=== PATIENT | female | born 1980 | race Two or more races ===

== ENCOUNTER → 2022-07-27 | Outpatient (CLI) | payer OTHER ==
[2022-07-27 08:35] LABS: Basophils # (auto) 0 10 ^3/uL (0-0.2); Eosinophils # (auto) 0.3 10 ^3/uL (0-0.8); Eosinophils % (auto) 5.4 % (0.0-7.0); Hematocrit 44.5 % (36.0-46.0); Hemoglobin 15.6 g/dL (12.2-16.2); Lymphocytes # (auto) 2.4 10 ^3/uL (0.4-5.4); Lymphocytes % (auto) 46.8 % (10.0-50.0); Mean Corpuscular Hemoglobin 30.8 pg (28.0-32.0); Mean Corpuscular Hgb Conc. 35.1 g/dL (32.0-36.0); Mean Corpuscular Volume 87.7 fL (80.0-100.0); Monocytes # (auto) 0.4 10 ^3/uL (0-1.3); Monocytes % (auto) 8.6 % (0.0-12.0); Neutrophils # (auto) 1.9 10 ^3/uL (1.6-8.6); Neutrophils % (auto) 38.2 % (37.0-80.0); Nucleated Red Blood Cells % 0.1 %; Red Blood Cells 5.07 10^6/uL (4.0-5.20); Red Cell Distribution Width 13.6 % (11.8-14.3); White Blood Cell 5.1 10^3/uL (4.4-10.8)
[2022-07-27 09:41] LABS: Potassium 4.5 mmol/L (3.5-5.1)
[2022-07-27 09:54] LABS: Albumin 3.9 g/dL (3.4-5.0); BUN/Creatinine Ratio 10.7; Bilirubin, Total 0.5 mg/dL (0.2-1.0); Calcium 8.9 mg/dL (8.5-10.1); Total Protein 7.6 g/dL (6.4-8.2)
[2022-07-28 07:07] LABS: RPR Non Reactive (Non Reactive)
== END | disposition home or self-care (01) ==
LOC: LAB 08:18
PROVIDERS: ATTEND Student in an Organized Health Care Education/Training Program
DX: Z00.00 Encounter for general adult medical examination without abnormal findings (principal); Z11.3 Encounter for screening for infections with a predominantly sexual mode of transmission; L65.9 Nonscarring hair loss, unspecified; E66.09 Other obesity due to excess calories; Z82.69 Family history of other diseases of the musculoskeletal system and connective tissue
CPT/HCPCS: 36415; 80053; 84478; 85025; 86592; 86703

== ENCOUNTER → 2023-01-20 | Outpatient (CLI) | payer OTHER | END | disposition home or self-care (01) | LOC: US 08:51 | PROVIDERS: ATTEND Student in an Organized Health Care Education/Training Program | DX: E04.1 Nontoxic single thyroid nodule (principal) | CPT/HCPCS: 76942 ==

== ENCOUNTER → 2024-05-15 | Outpatient (CLI) | payer OTHER ==
[2024-05-15 06:36] LABS: Basophils # (auto) 0.1 10 ^3/uL (0-0.2); Basophils % (auto) 0.9 % (0.0-2.0); Eosinophils # (auto) 0.3 10 ^3/uL (0-0.8); Eosinophils % (auto) 4.6 % (0.0-7.0); Hematocrit 47.2 % (36.0-46.0); Hemoglobin 16.3 g/dL (12.2-16.2); Lymphocytes # (auto) 2.9 10 ^3/uL (0.4-5.4); Mean Corpuscular Hemoglobin 31.2 pg (28.0-32.0); Mean Corpuscular Hgb Conc. 34.5 g/dL (32.0-36.0); Mean Corpuscular Volume 90.3 fL (80.0-100.0); Monocytes # (auto) 0.5 10 ^3/uL (0-1.3); Monocytes % (auto) 7.4 % (0.0-12.0); Neutrophils # (auto) 3.2 10 ^3/uL (1.6-8.6); Neutrophils % (auto) 46.1 % (37.0-80.0); Nucleated Red Blood Cells % 0.1 %; Platelet Count (auto) 254 10^3/uL (140-450); Red Blood Cells 5.23 10^6/uL (4.0-5.20); Red Cell Distribution Width 13.3 % (11.8-14.3)
[2024-05-15 06:53] LABS: Alanine Aminotransferase 13 U/L (7-40); Albumin 4.4 g/dL (3.2-4.8); Alkaline Phosphatase 70 U/L (46-116); Anion Gap 8 (5-15); BUN/Creatinine Ratio 12.1 (10.0-20.0); Blood Urea Nitrogen 11 mg/dL (9-23); Carbon Dioxide 24 mmol/L (20-31); Cholesterol 179 mg/dL (< 200); Glucose 104 mg/dL (74-106); HDL Cholesterol 58 mg/dL (40-59); Potassium 4.6 mmol/L (3.5-5.1); Sodium 141 mmol/L (136-145)
[2024-05-15 06:54] LABS: Bilirubin, Total 0.8 mg/dL (0.2-1.0); Total Protein 7.7 g/dL (5.7-8.2)
[2024-05-15 06:59] LABS: Aspartate Aminotransferase 9 U/L (13-40); Chloride 109 mmol/L (98-107); LDL Cholesterol 104 mg/dL (< 100); Triglycerides 154 mg/dL (< 150)
== END | disposition home or self-care (01) ==
LOC: LAB 06:04
PROVIDERS: ATTEND Student in an Organized Health Care Education/Training Program
DX: E66.01 Morbid (severe) obesity due to excess calories (principal); F41.9 Anxiety disorder, unspecified; E09.9 Drug or chemical induced diabetes mellitus without complications; L65.9 Nonscarring hair loss, unspecified
CPT/HCPCS: 36415; 80053; 80061; 84443; 85025

== ENCOUNTER → 2025-02-16 | Outpatient (CLI) | payer OTHER ==
[2025-02-16 06:24] LABS: Hematocrit 44.2 % (36.0-46.0); Hemoglobin 15.4 g/dL (12.2-16.2); Mean Corpuscular Hemoglobin 30.9 pg (28.0-32.0); Mean Corpuscular Volume 88.8 fL (80.0-100.0); Nucleated Red Blood Cells % 0.4 %
[2025-02-16 06:41] LABS: Urine Protein, UAD Negative (Negative)
[2025-02-16 06:52] LABS: Triglycerides 120 mg/dL (< 150)
[2025-02-16 06:53] LABS: Alanine Aminotransferase 15 U/L (7-40); Albumin 4.2 g/dL (3.2-4.8); Alkaline Phosphatase 66 U/L (46-116); Anion Gap 8 (5-15); BUN/Creatinine Ratio 9.8 (10.0-20.0); Bilirubin, Total 0.6 mg/dL (0.2-1.0); Calcium 9.0 mg/dL (8.7-10.4); Carbon Dioxide 27 mmol/L (20-31); Chloride 107 mmol/L (98-107); Cholesterol 167 mg/dL (< 200); Glucose 92 mg/dL (74-106); HDL Cholesterol 50 mg/dL (40-59); Potassium 4.3 mmol/L (3.5-5.1); Sodium 142 mmol/L (136-145); Total Protein 7.2 g/dL (5.7-8.2)
[2025-02-16 06:54] LABS: Blood Urea Nitrogen 8 mg/dL (9-23)
== END | disposition home or self-care (01) ==
LOC: LAB 06:06
PROVIDERS: ATTEND Nurse Practitioner
DX: I10 Essential (primary) hypertension (principal); E78.5 Hyperlipidemia, unspecified; E03.9 Hypothyroidism, unspecified; R73.9 Hyperglycemia, unspecified
CPT/HCPCS: 36415; 80053; 80061; 81001; 83036; 84443; 85025